=== PATIENT | female | born 1950 | race Caucasian/White ===

== ENCOUNTER 2016-08-27 12:06 | Emergency (ER) | payer OTHER ==
[2016-08-27 12:13] VITALS: BP 185/83; PULSE 54; TEMP 97.8; BMI 28.5
[2016-08-27] MEDS ORDERED: OXYCODONE/APAP 5/325MG COMBO TABLET PO ONE (12:55)
--- NOTE | 2016-08-27 12:57 | PDOC ---
History of Present Illness - General Chief Complaint: Injury Stated Complaint: RT WRIST PAIN Time Seen by Provider: 08/27/16 12:47 History Source: Patient Exam Limitations: No Limitations - History of Present Illness Initial Comments: 08/27/16 13:07 My Chief Complaint: Tripped and fell hitting right, pain rt wrist History of present illness: Patient is a 65-year-old female with a history of asthma, COPD, hypertension, hyperlipidemia and hypothyroidism here today after she tripped on her shoes and fell hitting her right forearm. Patient has a gross deformity of right medial wrist. Patient reports the pain in her right cranial wrist is currently a 10 out of 10. Patient denies any pain of her elbow or forearm or hand. Patient denies any numbness of her right arm or hand. Patient is able to move her fingers and elbow but is unable to move her right wrist. Occurred: reports: just prior to arrival Severity: reports: severe (rt. wrist ) Method of Injury: Yes: fall Modifying Factors: improves with: None Loss of Consciousness: no loss of consciousness Associated Symptoms (Fall): other (rt. medial lety deformity noted ) Past History - Past Medical History Allergies/Adverse Reactions: Allergies Allergy/AdvReac Type Severity Reaction Status Date / Time No Known Allergies Allergy Verified 08/27/16 12:13 Home Medications: Ambulatory Orders Benazepril/Hydrochlorothiazide [Benazepril-Hctz 20-12.5 mg Tab] 1 tab PO DAILY 06/03/12 Escitalopram Oxalate [Lexapro -] 20 mg PO HS 06/03/12 Levothyroxine [Synthroid -] 100 mcg PO DAILY 06/03/12 Rosuvastatin Calcium [Crestor] 5 mg PO HS 06/03/12 Anemia: No Asthma: Yes Cancer: No COPD: Yes HTN: Yes Hypercholesterolemia: Yes Thyroid Disease: Yes - Surgical History Abdominal Surgery: No Appendectomy: Yes Cardiac Surgery: No Gastric Stapling: No (GASTRIC SLEEVE) - Immunization History Td Vaccination: Yes - Psycho/Social/Smoking Cessation Hx Anxiety: No Suicidal Ideation: No Smoking Status: Yes Smoking History: Former smoker Years of Tobacco Use: 25 Have you smoked in the past 12 months: No Number of Cigarettes Smoked Daily: 0 If you are a former smoker, when did you quit?: 24 YRS Cigars Per Day: 0 Information on smoking cessation initiated: No Hx Alcohol Use: Yes (SOCIAL) Drug/Substance Use Hx: No Substance Use Type: None Hx Substance Use Treatment: No Review of Systems - Review of Systems Able to Perform ROS?: Yes Constitutional: No: Symptoms Reported HEENTM: No: Symptoms Reported Respiratory: No: Symptoms reported Cardiac (ROS): No: Symptoms Reported ABD/GI: No: Symptoms Reported : No: Symptoms Reported Musculoskeletal: Yes: Joint Pain (rt. wrist ), Joint Swelling (rt. medial wrist ) Integumentary: No: Symptoms Reported Neurological: No: Symptoms reported *Physical Exam - Vital Signs Last Vital Signs Temp Pulse Resp BP Pulse Ox 97.8 F 54 L 20 185/83 95 08/27/16 12:10 08/27/16 12:10 08/27/16 12:10 08/27/16 12:10 08/27/16 12:10 - Physical Exam General Appearance: Yes: Appropriately Dressed Comments:: 08/27/16 13:31 radial pulse rt. 4 + Extremity: positive: Normal Capillary Refill, Tender (rt. wrist ), Swelling ( rt.medial wrist ), Other (no tenderness rt. elbow, humerous, forearm). negative : Normal Range of Motion (decreased ROM rt. wrist, FROM Rt. elbow, rt. shoulder ) Integumentary: positive: Normal Color Neurologic: positive: Fully Oriented, Normal Response, Respond to painful stimul , Responsive. negative: Numbness, Sensory Deficit (rt. forearm, hand, wrist) Medical Decision Making - Medical Decision Making 08/27/16 13:09 Patient is a 65-year-old female with a history of asthma, COPD, hypertension, hyperlipidemia and hypothyroidism here today after she tripped on her shoes and fell hitting her right forearm. Patient has a gross deformity of right medial wrist. Patient reports the pain in her right cranial wrist is currently a 10 out of 10. Patient denies any pain of her elbow or forearm or hand. Patient denies any numbness of her right arm or hand. Patient is able to move her fingers and elbow but is unable to move her right wrist. Fall R/O rt. wrist PLAN: percocet 5mg/325mg po now xray rt. forearm distal radial comminuted slightly displaced fracture, nondisplaced fracture in the distal ulnar per Dr. Zapata xray rt. wrist nondisplaced fracture through the distal ulnar. Comminuted fracture of the distal radius with dorsal displacement of the distal fracture fragment. per per Dr. Armas 08/27/16 13:38 consult with SANDY Shannon from Dr. Dumont's office he viewed xrays done here, they would like her to go immediately to the office for possible reduction of fracture, he recommended putting her in just a sling if going to their office or if choosing to go to her own orthopedist Dr. Garcia put on a sugartong orthoglass splint. pt given this option or option to go to her own office, she choose to go directed to Dr. Dumont's office sling applied 08/27/16 13:44 08/27/16 14:52 08/27/16 14:53 *DC/Admit/Observation/Transfer Diagnosis at time of Disposition: Fracture of right wrist Qualifiers: Encounter type: initial encounter Fracture type: closed Qualified Code(s): S62.101A - Fracture of unspecified carpal bone, right wrist, initial encounter for closed fracture - Discharge Dispostion Disposition: HOME Condition at time of disposition: Stable - Referrals Referrals: Mata Navarro MD [Primary Care Provider] - Armando Dumont MD [Staff Physician] - - Patient Instructions Additional Instructions: Go immediately to Dr. Dumont's office they are expecting you for further evaluation and treatment Patient and voiced understanding of discharge instructions and all questions are answered
[2016-08-27] MEDS ORDERED: OXYCODONE/APAP 5/325MG COMBO TABLET ONE (12:58)
== END 2016-08-27 13:51 | disposition home or self-care (01) ==
LOC: JERFT 12:06
DX: S62.101A Fracture of unspecified carpal bone, right wrist, initial encounter for closed fracture (principal); W18.09XA Striking against other object with subsequent fall, initial encounter; Y93.89 Activity, other specified; Y92.9 Unspecified place or not applicable; J44.9 Chronic obstructive pulmonary disease, unspecified; J45.909 Unspecified asthma, uncomplicated; I10 Essential (primary) hypertension; E80.0 Hereditary erythropoietic porphyria; E03.9 Hypothyroidism, unspecified; Z98.84 Bariatric surgery status; Z87.891 Personal history of nicotine dependence
CPT/HCPCS: 73090-TC-RT; 73110-TC-RT; 73130-TC-RT; 99281-25

== ENCOUNTER 2016-08-28 05:14 | Day surgery (SDC) | payer OTHER ==
[2016-08-27 16:24] VITALS: BMI 28.5
--- NOTE | 2016-08-28 12:29 | HP ---
Satellite H - Chief Complaint Chief Complaint: right wrist fx - Past Medical History Allergies/Adverse Reactions: Allergies Allergy/AdvReac Type Severity Reaction Status Date / Time No Known Allergies Allergy Verified 08/27/16 16:14 Cardiovascular: Yes: HTN, Hyperlipdemia Endocrine: Yes: Hypothyroidism - Current Medications Current Medications: Home Medications Medication Instructions Recorded Levothyroxine [Synthroid -] 100 mcg PO DAILY 06/03/12 Rosuvastatin Calcium [Crestor] 5 mg PO HS 06/03/12 Lisinopril 08/27/16 Satellite Physical Exam - Physical Examination General Appearance: Well Nourished, Well Developed, Alert & Oriented x3 ENT: Clear Lung: Normal air movement Heart: Regular rate & rhythm Extremities: Other (right wrist- + swelling, + ttp, decr rom, nvi xrays show displaced intraarticular distal radius fx) Neurological: Intact, Alert, Oriented Satellite Impression/Plan - Impression/Plan Impression: right distal radius fx Operative Procedure: right distal radius orif Date to be Performed: 08/28/16
[2016-08-28] MEDS ORDERED: ROPIVACAINE HCL 0.5% 30ML VIAL ONE (14:16)
[2016-08-28] MEDS ORDERED: MIDAZOLAM HCL 2 MG/2 ML SINGLE DOSE VIAL ONE ×2 (14:18)
[2016-08-28] MEDS ORDERED: LIDOCAINE HCL/PF 2% SDV 5ML VIAL ONE (15:19)
[2016-08-28] MEDS ORDERED: PROPOFOL 20 ML ONE (15:20)
[2016-08-28] MEDS ORDERED: ceFAZolin SODIUM 1 GM VIAL ONE (15:31)
[2016-08-28] MEDS ORDERED: DEXAMETHASONE SOD PHOSPHATE 4 MG/1 ML VIAL ONE (15:31)
[2016-08-28] MEDS ORDERED: ceFAZolin SODIUM 1 GM VIAL IVPB ONE (15:32)
[2016-08-28] MEDS ORDERED: ONDANSETRON 4 MG/2 ML VIAL IVPUSH PRN (16:19)
[2016-08-28] MEDS ORDERED: LACTATED RINGERS SOLUTION 1,000 ML IV SCH (16:30)
--- NOTE | 2016-08-28 16:48 | OP ---
Operative Note - Note: Operative Date: 08/28/16 Pre-Operative Diagnosis: right distal radius fracture Operation: right distal radius ORIF Implants: [employer] DVR plate, 3 x 3.5mm screws all 12mm, 5 x distal partially threaded locking screws Surgeon: Norman Palomino Anesthesiologist/MOBILE MECHANIC: Dolores Mcneal Anesthesia: General, Local Estimated Blood Loss (mls): 0 Drains, Volume Out (mls): 0 Blood Volume Replaced (mls): 0 Fluid Volume Replaced (mls): 500 Operative Report Dictated: Yes
[2016-08-28 18:37] VITALS: TEMP 97.8
[2016-08-28 18:47] VITALS: BP 144/62; PULSE 78
--- NOTE | 2016-08-31 20:12 | SPEC ---
DATE OF OPERATION: 08/28/2016 PREOPERATIVE DIAGNOSIS: Right distal radius fracture, comminuted, intraarticular, and displaced. POSTOPERATIVE DIAGNOSIS: Right distal radius fracture, comminuted, intraarticular, and displaced. PROCEDURE: Right distal radius open reduction and internal fixation and brachioradialis tenotomy. SURGEON: Norman Salinas MD ASSISTANTS: None. DIRECTOR OF MARKETING COMMUNICATIONS: Dolores Mcneal CRNA ANESTHESIA: LMA and right interscalene block. DRAINS: None. COMPLICATIONS: None. SPECIMEN: None. BLOOD LOSS: None. BLOOD GIVEN: None. FLUID REPLACEMENT: Was 500 mL. This patient is a 65-year-old female with a preoperative diagnosis of a displaced intraarticular, comminuted right distal radius fracture. After understanding the potential risks, complications, alternatives, and benefits of surgery versus nonsurgical treatment, the patient elected to undergo this procedure. She understands she has a risk of posttraumatic arthritis, temporary or permanent paresthesias, need for physical therapy, infection, need for additional surgery including removal of the plate, neurovascular compromise, stiffness. These and other potential risks and complications were discussed, and the patient has elected to undergo this procedure. The patient was brought to the operating room. Peripheral IV placed. IV sedation given and 1 g of IV Ancef was given. Right interscalene block was performed. LMA anesthesia was induced. The entire case was done under 3.8 loupe magnification. Typical FCR approach was marked out with a marking pen and incision made with No. 15 scalpel blade. Subcutaneous hemostasis was achieved with a bipolar cautery. The radial artery was retracted gently in a radial direction and ulnar to this, using a fresh No. 15 scalpel blade, the muscular fascia was incised. Blunt dissection was done with my index finger down to the volar aspect of the distal radius. Weitlaner retractors were placed deep into the wound for visualization. A periosteal elevator was used to do subperiosteal dissection exposing the fracture site. There was a main transverse component to the distal radius fracture but in addition there were several pieces, some extending towards the radial carpal joint and some towards the distal radial ulnar joint. The fracture site was copiously irrigated and washed out. All debris including hematoma and muscle were removed. A provisional reduction was performed and seemed to come together quite nicely. There was a small metaphyseal defect. X-rays were taken in A-P and lateral planes documenting excellent position of the fracture fragments, restoring radial height inclination and volar tilt. Next a standard [employer] left volar low profile DVR plate was placed on the volar aspect of the distal radius. Two K-wires were placed and x-rays were taken documenting excellent position, length and subchondral position. Next the central 3.5 mm screw was placed in a standard fashion, this was 14 mm in length, and the second-most ulnar proximal row screw was placed. This was a 24 mm partially threaded locking screw. X-rays again were taken documenting excellent position and support of the subchondral bone. The rest of the screws were then put in, first 3 additional purple proximal screws of 12 mm in length for 6 cortices proximally and then the silver drill bit was used to put in the remaining 5 screws of both the proximal and distal row from mm of length, all partially-threaded blue distal screws. All of the guides were removed and passed off the field. Final x-rays were taken in A-P and lateral planes. I was quite happy with the fracture fragments, position of the hardware, and the position of the screws in the subchondral position. The tourniquet was taken down after a total tourniquet time of 45 minutes. There were no complications during the case. The patient tolerated the procedure well and was brought to the ambulatory recovery room in stable condition. DETAILS: We used the [employer] standard volar DVR plate. I used 3 purple 3.5-mm screws, all 12 mm in length. We used a total of 5 of the partially-threaded blue distal screws. I did a brachioradialis tenotomy to expedite the reduction. NORMAN SALINAS M.D. [id number]
== END 2016-08-28 18:53 | disposition home or self-care (01) ==
LOC: JASU-SURG 05:14
PROVIDERS: ATTEND Orthopaedic Surgery
PROC: 0PSH04Z Reposition Right Radius with Internal Fixation Device, Open Approach (ICD-10-PCS; principal; 2016-08-28 17:30)
DX: S52.531A Colles' fracture of right radius, initial encounter for closed fracture (principal); X58.XXXA Exposure to other specified factors, initial encounter; Y93.9 Activity, unspecified; Y92.9 Unspecified place or not applicable; Y99.9 Unspecified external cause status
CPT/HCPCS: 76000-TC; 94760

== ENCOUNTER 2017-07-08 07:01 | Day surgery (SDC) | payer OTHER ==
[2017-07-07 13:25] VITALS: BMI 29.1
[2017-07-08 08:44] VITALS: TEMP 97.5
[2017-07-08 09:56] VITALS: BP 117/45; PULSE 50
--- NOTE | 2017-07-09 09:57 | PATH ---
Surgical Pathology Report Patient Name: HERBERT SHARIF [facility]. Rec. #: [id number] /Age/Gender: 1950 (Age: 66) / F Account: [id number] Location: ASU-ENDOSCOPY Taken: 07/08/2017 Received: 07/08/2017 Reported: 07/09/2017 Physicians: Jessica De Leon M.D. Specimen(s) Received RECTAL POLYP Clinical History Colon cancer screening Postoperative diagnosis: Rectal polyp, diverticulosis Final Diagnosis RECTUM, POLYP, POLYPECTOMY: HYPERPLASTIC POLYP. Electronically Signed Rosina Bean M.D. Gross Description Received in formalin, labeled "biopsy polyp rectum" are 5 chang, irregular portions of soft tissue ranging from 0.2-0.5 cm. in greatest dimension. The specimens are submitted in toto in one cassette. /07/08/2017 saudi07/08/2017
== END 2017-07-08 09:56 | disposition home or self-care (01) ==
LOC: JASU-ENDO 07:01
PROVIDERS: ATTEND Internal Medicine Gastroenterology
PROC: 0DBP8ZX Excision of Rectum, Via Natural or Artificial Opening Endoscopic, Diagnostic (ICD-10-PCS; principal; 2017-07-08 08:00)
DX: Z12.11 Encounter for screening for malignant neoplasm of colon (principal); K62.1 Rectal polyp; I10 Essential (primary) hypertension; E03.9 Hypothyroidism, unspecified; J44.9 Chronic obstructive pulmonary disease, unspecified; Z98.84 Bariatric surgery status; K57.30 Diverticulosis of large intestine without perforation or abscess without bleeding
CPT/HCPCS: 88305-TC

== ENCOUNTER 2017-08-06 10:40 | Emergency (ER) | payer OTHER ==
--- NOTE | 2017-08-06 10:59 | PDOC ---
History of Present Illness - General Chief Complaint: Injury Stated Complaint: FALL (RAPID RESPONSE) Time Seen by Provider: 08/06/17 10:59 Past History - Past Medical History Allergies/Adverse Reactions: Allergies Allergy/AdvReac Type Severity Reaction Status Date / Time No Known Allergies Allergy Verified 08/27/16 16:14 Home Medications: Ambulatory Orders Levothyroxine [Synthroid -] 100 mcg PO DAILY 06/03/12 Rosuvastatin Calcium [Crestor] 5 mg PO ASDIR 06/03/12 Amlodipine Besylate [Norvasc -] 10 mg PO DAILY 07/07/17 Aspirin [Aspirin EC] 81 mg PO DAILY 07/07/17 Calcium Carb, Citrate/Vit D3 [Calcium + D3 ER Tablet] 600 mg PO DAILY 07/07/17 Cyanocobalamin (Vitamin B-12) [Vitamin B12] 2,500 mcg PO DAILY 07/07/17 Metoprolol Succinate [Toprol Xl] 50 mg PO DAILY 07/07/17 Multivitamin [Daily Multiple Vitamin] 1 each PO DAILY 07/07/17 Valsartan [Diovan] 160 mg PO DAILY 07/07/17 Anemia: No Asthma: Yes Cancer: No Cardiac Disorders: No CVA: No COPD: Yes (inhalers when needed) CHF: No Dementia: No Diabetes: No GI Disorders: No Disorders: No HTN: Yes Hypercholesterolemia: Yes Liver Disease: No Seizures: No Thyroid Disease: Yes (hypo) - Surgical History Abdominal Surgery: No Appendectomy: Yes (2012) Cardiac Surgery: No Gastric Stapling: No (GASTRIC SLEEVE) Orthopedic Surgery: Yes (WRIST SX) - Immunization History Td Vaccination: Yes - Suicide/Smoking/Psychosocial Hx Smoking Status: Yes Smoking History: Former smoker Years of Tobacco Use: 25 Have you smoked in the past 12 months: No Number of Cigarettes Smoked Daily: 0 If you are a former smoker, when did you quit?: 25 YRS Cigars Per Day: 0 Information on smoking cessation initiated: No Hx Alcohol Use: No Drug/Substance Use Hx: No Substance Use Type: None Hx Substance Use Treatment: No *Physical Exam - Vital Signs Last Vital Signs Temp Pulse Resp BP Pulse Ox 98 F 78 20 157/78 97 08/06/17 10:47 08/06/17 10:47 08/06/17 10:47 08/06/17 10:47 08/06/17 10:47 *DC/Admit/Observation/Transfer - Referrals Referrals: Mata Navarro MD [Primary Care Provider] - - Patient Instructions - Post Discharge Activity
[2017-08-06 11:01] VITALS: TEMP 98; BMI 29.9
--- NOTE | 2017-08-06 11:07 | PDOC ---
History of Present Illness - General Chief Complaint: Injury Stated Complaint: FALL (RAPID RESPONSE) Time Seen by Provider: 08/06/17 10:59 - History of Present Illness Initial Comments: 08/06/17 11:15 66 year old female with a hx of hypertension and COPD presents to the ED s/p fall in the hospital. She states that she tripped and fell while walking to get her routine labs drawn for her PCP. She reports falling forward and breaking her fall with her right wrist. She denies LOC, lightheadedness, or hx of falls. She states that she feels mild pain and soreness in her right hand as well as pain on her right side. Denies chest pain, fevers, chills, nausea, vomiting, diarrhea. Allergies: none Surgeries: R hand surgery 1 year ago Smoking: former Alcohol: none Drugs: none PCP: Dr. Navarro Past History - Past Medical History Allergies/Adverse Reactions: Allergies Allergy/AdvReac Type Severity Reaction Status Date / Time No Known Allergies Allergy Verified 08/27/16 16:14 Home Medications: Ambulatory Orders Levothyroxine [Synthroid -] 100 mcg PO DAILY 06/03/12 Rosuvastatin Calcium [Crestor] 5 mg PO ASDIR 06/03/12 Amlodipine Besylate [Norvasc -] 10 mg PO DAILY 07/07/17 Aspirin [Aspirin EC] 81 mg PO DAILY 07/07/17 Calcium Carb, Citrate/Vit D3 [Calcium + D3 ER Tablet] 600 mg PO DAILY 07/07/17 Cyanocobalamin (Vitamin B-12) [Vitamin B12] 2,500 mcg PO DAILY 07/07/17 Metoprolol Succinate [Toprol Xl] 50 mg PO DAILY 07/07/17 Multivitamin [Daily Multiple Vitamin] 1 each PO DAILY 07/07/17 Valsartan [Diovan] 160 mg PO DAILY 07/07/17 Anemia: No Asthma: Yes Cancer: No Cardiac Disorders: No CVA: No COPD: Yes (inhalers when needed) CHF: No Dementia: No Diabetes: No GI Disorders: No Disorders: No HTN: Yes Hypercholesterolemia: Yes Liver Disease: No Seizures: No Thyroid Disease: Yes (hypo) - Surgical History Abdominal Surgery: No Appendectomy: Yes (2012) Cardiac Surgery: No Gastric Stapling: No (GASTRIC SLEEVE) Orthopedic Surgery: Yes (WRIST SX) - Immunization History Td Vaccination: Yes - Suicide/Smoking/Psychosocial Hx Smoking Status: Yes Smoking History: Former smoker Years of Tobacco Use: 25 Have you smoked in the past 12 months: No Number of Cigarettes Smoked Daily: 0 If you are a former smoker, when did you quit?: 25 YRS Cigars Per Day: 0 Information on smoking cessation initiated: No Hx Alcohol Use: No Drug/Substance Use Hx: No Substance Use Type: None Hx Substance Use Treatment: No *Physical Exam - Vital Signs Last Vital Signs Temp Pulse Resp BP Pulse Ox 98 F 78 20 157/78 97 08/06/17 10:47 08/06/17 10:47 08/06/17 10:47 08/06/17 10:47 08/06/17 10:47 - Physical Exam Comments: 08/06/17 11:20 GENERAL: A&Ox3, no acute distress EYES: PERRLA, EOMI ENT: Moist mucus membranes NECK: No JVD LUNGS: CTA, no wheezes HEART: RRR, no murmurs ABDOMEN: Soft, mildly tender to palpation of R side MUSCULOSKELETAL: No CVA Tenderness EXTREMITIES: 2+ pulses, no edema. mildly weak medical receptionist strength of R hand NEUROLOGICAL: Cranial nerves II-XII intact. ED Treatment Course - LABORATORY CBC & Chemistry Diagram: 08/06/17 13:00 08/06/17 13:00 Medical Decision Making - Medical Decision Making 08/06/17 11:31 66 year old female s/p fall with injury to R side and R hand -Xray R hand, R rib series, CXR -will re-evaluate 08/06/17 13:16 -patient still has R sided abdominal pain -will get a set of labs and CT abdomen pelvis with contrast 08/06/17 16:02 -No acute R wrist pathology -No rib pathology -awaiting read of CT abd/pelvis 08/06/17 16:43 -abd/pelvis negative for acute pathology *DC/Admit/Observation/Transfer Diagnosis at time of Disposition: Fall - Discharge Dispostion Disposition: HOME Condition at time of disposition: Stable Decision to Admit order: No - Referrals Referrals: Mata Navarro MD [Primary Care Provider] - - Patient Instructions - Post Discharge Activity
[2017-08-06] MEDS ORDERED: ACETAMINOPHEN 325 MG TABLET (FP) PO ONE ×2 (12:19→12:20)
[2017-08-06] MEDS ORDERED: ACETAMINOPHEN 325 MG TABLET (FP) ONE (12:24)
[2017-08-06 13:12] LABS: BASO % 0.6 % (0-2.0); EOS % 2.1 % (0-4.5); HEMATOCRIT 37.3 % (32.4-45.2); HEMOGLOBIN 12.3 GM/dL (10.7-15.3); LYMPH % 24.2 % (8-40); MCH 31.7 pg (25.7-33.7); MEAN CELL VOLUME 96.1 fl (80-96); MEAN PLT VOLUME 10.3 fl (7.5-11.1); MONO % 8.7 % (3.8-10.2); NEUT % 64.4 % (42.8-82.8); PLATELET COUNT 232 K/MM3 (134-434); RBC 3.88 M/mm3 (3.60-5.2); RDW 13.2 % (11.6-15.6)
[2017-08-06 13:27] LABS: PROTHROMBIN TIME (PATIENT) 11.3 SEC (9.7-13.0)
[2017-08-06 13:32] LABS: ALBUMIN 3.3 g/dl (3.4-5.0); ANION GAP 6 (8-16); BILIRUBIN,TOTAL 0.6 mg/dL (0.2-1.0); BLOOD UREA NITROGEN 14 mg/dL (7-18); CALCIUM 8.7 mg/dL (8.5-10.1); CHLORIDE 104 mmol/L (98-107); CO2 29 mmol/L (21-32); CREATININE 0.7 mg/dL (0.55-1.02); GLUCOSE,RANDOM 81 mg/dL (74-106); POTASSIUM 4.2 mmol/L (3.5-5.1); SGOT/AST 11 U/L (15-37); SGPT/ALT 21 U/L (12-78); SODIUM 139 mmol/L (136-145); TOT PROT 7.8 g/dl (6.4-8.2)
[2017-08-06 13:33] LABS: ALK PHOS 103 U/L (45-117)
[2017-08-06 17:01] VITALS: BP 159/78; PULSE 52
== END 2017-08-06 17:00 | disposition home or self-care (01) ==
LOC: JER 10:40
DX: S29.8XXA Other specified injuries of thorax, initial encounter (principal); S69.81XA Other specified injuries of right wrist, hand and finger(s), initial encounter; W01.0XXA Fall on same level from slipping, tripping and stumbling without subsequent striking against object, initial encounter; Y93.89 Activity, other specified; Y92.232 Corridor of hospital as the place of occurrence of the external cause; Y99.8 Other external cause status; I10 Essential (primary) hypertension; J44.9 Chronic obstructive pulmonary disease, unspecified; J45.909 Unspecified asthma, uncomplicated; E78.00 Pure hypercholesterolemia, unspecified; E03.9 Hypothyroidism, unspecified; Z79.82 Long term (current) use of aspirin; Z87.891 Personal history of nicotine dependence
CPT/HCPCS: 36415; 71046-TC-FY; 71111-TC-FY; 73110-TC-RT-FY; 73130-TC-RT-FY; 74177-TC; 80053; 85025; 85610; 99282-25

== ENCOUNTER 2022-06-07 17:06 | Inpatient (IN) | payer OTHER ==
[2022-06-07] MEDS ORDERED: CEFTRIAXONE 1,000 MG in DEXTROSE 5%-WATER - 50 ML IVPB ONE (18:19)
[2022-06-07] MEDS ORDERED: AZITHROMYCIN IVPB 500 MG in DEXTROSE 5%-WATER - 250 ML IVPB ONE (18:19)
[2022-06-07] MEDS ORDERED: DOXYCYCLINE MONOHYDRATE 25 MG/5 ML SUSPENSION PO ONE (18:20)
[2022-06-07] MEDS ORDERED: CEFTRIAXONE 1 GM/50 ML BAG ONE (18:25)
[2022-06-07] MEDS ORDERED: ACETAMINOPHEN 1000 MG/100 ML BAG IVPB ONE (18:25)
[2022-06-07] MEDS ORDERED: LIDOCAINE 5% TOPICAL PATCH TP ONE (18:25)
[2022-06-07] MEDS: ALBUTEROL SO4 2.5/IPRATROPIUM 0.5 INH SOL 3 ML VIAL.NEB. NEB SCH ×3 (18:30→19:00)
[2022-06-07] MEDS ORDERED: ACETAMINOPHEN INJECTION 100 ML IVPB ONE (18:48)
[2022-06-07] MEDS ORDERED: LIDOCAINE 5% TOPICAL PATCH ONE (18:48)
[2022-06-07] MEDS ORDERED: ALBUTEROL SO4 2.5/IPRATROPIUM 0.5 INH SOL 3 ML VIAL.NEB. NEB ONE (18:48)
[2022-06-07 18:54] LABS: VENOUS BASE EXCESS -3.8 mmol/L (-2-2); VENOUS O2 SATURATION 73.1 % (70-80); VENOUS PCO2 49.1 mmHg (38-52); VENOUS PH 7.29 (7.310-7.410)
[2022-06-07 19:05] LABS: BASO % 0.1 % (0-2.0); EOS % 0.1 % (0-4.5); HEMATOCRIT 36.3 % (32.4-45.2); HEMOGLOBIN 12.1 GM/dL (10.7-15.3); MCH 31.9 pg (25.7-33.7); MCHC 33.3 g/dl (32.0-36.0); MEAN CELL VOLUME 95.7 fl (80-96); MEAN PLT VOLUME 9.9 fl (7.5-11.1); NEUT % 81.8 % (42.8-82.8); PLATELET COUNT 277 10^3/uL (134-434); RDW 12.9 % (11.6-15.6); WHITE BLOOD COUNT 14.5 K/mm3 (4.0-10.0)
[2022-06-07 19:26] LABS: ALBUMIN 3.2 g/dl (3.4-5.0); BLOOD UREA NITROGEN 27.1 mg/dL (7-18); CALCIUM 9.1 mg/dL (8.5-10.1)
[2022-06-07 19:31] LABS: BILIRUBIN,TOTAL 0.3 mg/dL (0.2-1); TOT PROT 7.4 g/dl (6.4-8.2)
[2022-06-07] MEDS ORDERED: DOXYCYCLINE HYCLATE 100 MG CAPSULE PO ONE ×2 (20:04→21:17)
[2022-06-07] MEDS ORDERED: DOCUSATE SODIUM 100 MG CAPSULE (FP) PO PRN (21:36)
[2022-06-07] MEDS ORDERED: CODEINE SO4 30 MG TABLET PO ONE (21:45)
[2022-06-07] MEDS ORDERED: traZODone HCL 50 MG TABLET (FP) PO SCH (22:00)
[2022-06-07 23:58] VITALS: BMI 34.2
[2022-06-08] MEDS ORDERED: LIDOCAINE HCL 5% TOP OINTMENT 50 GM TUBE TP ONE (00:16)
[2022-06-08] MEDS ORDERED: LIDOCAINE 5% TOPICAL PATCH TP ONE (00:17)
[2022-06-08] MEDS ORDERED: LIDOCAINE PATCH REMOVAL MC ONE ×2 (06:00→13:00)
[2022-06-08] MEDS: LEVOTHYROXINE NA 100 MCG TABLET (FP) PO SCH (06:30)
[2022-06-08] MEDS: ALBUTEROL SO4 0.083% IH SOL 2.5 MG/3 ML VIAL.NEB. NEB SCH ×4 (07:25→20:03)
[2022-06-08 09:12] LABS: HEMATOCRIT 33.8 % (32.4-45.2); HEMOGLOBIN 11.5 GM/dL (10.7-15.3); MCH 32.6 pg (25.7-33.7); MCHC 33.9 g/dl (32.0-36.0); MEAN CELL VOLUME 96.2 fl (80-96); MEAN PLT VOLUME 10.4 fl (7.5-11.1); PLATELET COUNT 248 10^3/uL (134-434); RBC 3.52 M/mm3 (3.60-5.2); RDW 12.8 % (11.6-15.6); WHITE BLOOD COUNT 10.7 K/mm3 (4.0-10.0)
[2022-06-08] MEDS: CEFTRIAXONE 2 GM in DEXTROSE 5%-WATER 100 ML IVPB SCH (09:20)
[2022-06-08] MEDS: amLODIPine BESYLATE 10 MG TABLET (FP) PO SCH (09:22)
[2022-06-08 09:29] LABS: BLOOD UREA NITROGEN 19.3 mg/dL (7-18); CALCIUM 8.7 mg/dL (8.5-10.1)
[2022-06-08 09:33] LABS: CREATININE 0.8 mg/dL (0.55-1.3)
[2022-06-08] MEDS: ENOXAPARIN NA (PORCINE) 40 MG/0.4 ML DISP.SYRIN SQ SCH (09:47)
[2022-06-08] MEDS ORDERED: VALSARTAN 160 MG TABLET PO SCH (10:00)
[2022-06-08] MEDS ORDERED: ENOXAPARIN NA (PORCINE) 40 MG/0.4 ML DISP.SYRIN SQ SCH (10:00)
[2022-06-08] MEDS: AZITHROMYCIN 500 MG TABLET PO SCH (10:46)
[2022-06-08] MEDS: CODEINE SO4 30 MG TABLET PO PRN ×2 (12:15→21:41)
[2022-06-08] MEDS: traZODone HCL 50 MG TABLET (FP) PO SCH (21:34)
[2022-06-09] MEDS: LEVOTHYROXINE NA 100 MCG TABLET (FP) PO SCH (06:17)
[2022-06-09] MEDS: ALBUTEROL SO4 0.083% IH SOL 2.5 MG/3 ML VIAL.NEB. NEB SCH ×4 (07:10→20:15)
[2022-06-09] MEDS: amLODIPine BESYLATE 10 MG TABLET (FP) PO SCH (10:54)
[2022-06-09] MEDS: CEFTRIAXONE 2 GM in DEXTROSE 5%-WATER 100 ML IVPB SCH (10:54)
[2022-06-09] MEDS: metoPROLOL SUCCINATE 25 MG TAB.SR.24H (FP) PO SCH (10:54)
[2022-06-09] MEDS: VALSARTAN 160 MG TABLET PO SCH (10:55)
[2022-06-09] MEDS: AZITHROMYCIN 500 MG TABLET PO SCH (10:58)
[2022-06-09] MEDS: ENOXAPARIN NA (PORCINE) 40 MG/0.4 ML DISP.SYRIN SQ SCH (10:58)
[2022-06-09] MEDS: traZODone HCL 50 MG TABLET (FP) PO SCH (21:12)
[2022-06-09] MEDS: CODEINE SO4 30 MG TABLET PO PRN (21:15)
[2022-06-10] MEDS: LEVOTHYROXINE NA 100 MCG TABLET (FP) PO SCH (06:11)
[2022-06-10] MEDS: ALBUTEROL SO4 0.083% IH SOL 2.5 MG/3 ML VIAL.NEB. NEB SCH ×4 (07:25→19:44)
[2022-06-10] MEDS: AZITHROMYCIN 500 MG TABLET PO SCH (10:27)
[2022-06-10] MEDS: ENOXAPARIN NA (PORCINE) 40 MG/0.4 ML DISP.SYRIN SQ SCH (10:28)
[2022-06-10] MEDS: CEFTRIAXONE 2 GM in DEXTROSE 5%-WATER 100 ML IVPB SCH (10:28)
[2022-06-10] MEDS: VALSARTAN 160 MG TABLET PO SCH (10:41)
[2022-06-10] MEDS: amLODIPine BESYLATE 10 MG TABLET (FP) PO SCH (10:44)
[2022-06-10] MEDS: metoPROLOL SUCCINATE 25 MG TAB.SR.24H (FP) PO SCH (10:44)
[2022-06-10 11:27] LABS: HEMATOCRIT 34.2 % (32.4-45.2); HEMOGLOBIN 11.7 GM/dL (10.7-15.3); MCH 32.6 pg (25.7-33.7); MCHC 34.1 g/dl (32.0-36.0); MEAN CELL VOLUME 95.7 fl (80-96); MEAN PLT VOLUME 9.2 fl (7.5-11.1); PLATELET COUNT 284 10^3/uL (134-434); RBC 3.58 M/mm3 (3.60-5.2); RDW 13.1 % (11.6-15.6)
[2022-06-10 12:12] LABS: BLOOD UREA NITROGEN 8.7 mg/dL (7-18); CALCIUM 8.5 mg/dL (8.5-10.1); MAGNESIUM 2.2 mg/dL (1.8-2.4)
[2022-06-10 12:13] LABS: ALBUMIN 2.6 g/dl (3.4-5.0)
[2022-06-10 12:15] LABS: PHOSPHOROUS 3.4 mg/dL (2.5-4.9)
[2022-06-10 12:16] LABS: CREATININE 0.7 mg/dL (0.55-1.3)
[2022-06-10 12:17] LABS: ANISOCYTOSIS 0; BILIRUBIN,TOTAL 0.5 mg/dL (0.2-1); HELMET CELLS 0; HOWELL-JOLLY BODIES 0; MACROCYTOSIS 0; OVALOCYTE 0; ROULEAU 0; SICKELED CELLS 0; TARGET CELLS 0; TEAR DROP CELLS 0; TOT PROT 6.3 g/dl (6.4-8.2); TOXIC GRANULATION 0
[2022-06-10 14:24] VITALS: RESP 18
[2022-06-10] MEDS: traZODone HCL 50 MG TABLET (FP) PO SCH (21:24)
[2022-06-11] MEDS: LEVOTHYROXINE NA 100 MCG TABLET (FP) PO SCH (06:07)
[2022-06-11] MEDS: ALBUTEROL SO4 0.083% IH SOL 2.5 MG/3 ML VIAL.NEB. NEB SCH ×4 (07:37→20:30)
[2022-06-11] MEDS ORDERED: POLYETHYLENE GLYCOL (HEALTHYLAX) 3350 17 GM PACKET PO ONE (10:00)
[2022-06-11] MEDS: VALSARTAN 160 MG TABLET PO SCH (10:19)
[2022-06-11] MEDS: amLODIPine BESYLATE 10 MG TABLET (FP) PO SCH (10:19)
[2022-06-11] MEDS: ENOXAPARIN NA (PORCINE) 40 MG/0.4 ML DISP.SYRIN SQ SCH (10:19)
[2022-06-11] MEDS: metoPROLOL SUCCINATE 25 MG TAB.SR.24H (FP) PO SCH (10:19)
[2022-06-11] MEDS: CEFTRIAXONE 2 GM in DEXTROSE 5%-WATER 100 ML IVPB SCH (10:20)
[2022-06-11 10:29] LABS: HEMATOCRIT 33.5 % (32.4-45.2); HEMOGLOBIN 11.3 GM/dL (10.7-15.3); MCH 32.2 pg (25.7-33.7); MCHC 33.7 g/dl (32.0-36.0); MEAN CELL VOLUME 95.7 fl (80-96); MEAN PLT VOLUME 9.8 fl (7.5-11.1); PLATELET COUNT 269 10^3/uL (134-434); RDW 12.9 % (11.6-15.6); WHITE BLOOD COUNT 8.8 K/mm3 (4.0-10.0)
[2022-06-11] MEDS: traZODone HCL 50 MG TABLET (FP) PO SCH (21:52)
[2022-06-12] MEDS: LEVOTHYROXINE NA 100 MCG TABLET (FP) PO SCH (06:41)
[2022-06-12] MEDS: ALBUTEROL SO4 0.083% IH SOL 2.5 MG/3 ML VIAL.NEB. NEB SCH ×4 (07:40→20:40)
[2022-06-12] MEDS: CEFTRIAXONE 2 GM in DEXTROSE 5%-WATER 100 ML IVPB SCH (10:01)
[2022-06-12] MEDS: amLODIPine BESYLATE 10 MG TABLET (FP) PO SCH (10:01)
[2022-06-12] MEDS: VALSARTAN 160 MG TABLET PO SCH (10:01)
[2022-06-12] MEDS: ENOXAPARIN NA (PORCINE) 40 MG/0.4 ML DISP.SYRIN SQ SCH (10:01)
[2022-06-12] MEDS: metoPROLOL SUCCINATE 25 MG TAB.SR.24H (FP) PO SCH (10:02)
[2022-06-12] MEDS: CODEINE SO4 30 MG TABLET PO PRN (10:11)
[2022-06-12] MEDS: ACETYLCYSTEINE 20% 200MG/ML 4 ML VIAL *FOR ORAL / INH USE ONLY NEB SCH ×2 (11:15→20:40)
[2022-06-12] MEDS ORDERED: ACETYLCYSTEINE 20% 200MG/ML 4 ML VIAL *FOR ORAL / INH USE ONLY NEB SCH (12:00)
[2022-06-12] MEDS: traZODone HCL 50 MG TABLET (FP) PO SCH (21:10)
[2022-06-13] MEDS: LEVOTHYROXINE NA 100 MCG TABLET (FP) PO SCH (05:59)
[2022-06-13] MEDS: ALBUTEROL SO4 0.083% IH SOL 2.5 MG/3 ML VIAL.NEB. NEB SCH ×4 (08:15→20:27)
[2022-06-13] MEDS: ACETYLCYSTEINE 20% 200MG/ML 4 ML VIAL *FOR ORAL / INH USE ONLY NEB SCH ×2 (08:15→20:27)
[2022-06-13] MEDS: ENOXAPARIN NA (PORCINE) 40 MG/0.4 ML DISP.SYRIN SQ SCH (10:07)
[2022-06-13] MEDS: VALSARTAN 160 MG TABLET PO SCH (10:07)
[2022-06-13] MEDS: CODEINE SO4 30 MG TABLET PO PRN (10:07)
[2022-06-13] MEDS: metoPROLOL SUCCINATE 25 MG TAB.SR.24H (FP) PO SCH (10:07)
[2022-06-13] MEDS: CEFTRIAXONE 2 GM in DEXTROSE 5%-WATER 100 ML IVPB SCH (10:07)
[2022-06-13] MEDS: amLODIPine BESYLATE 10 MG TABLET (FP) PO SCH (10:07)
[2022-06-13] MEDS: traZODone HCL 50 MG TABLET (FP) PO SCH (21:55)
[2022-06-14] MEDS: LEVOTHYROXINE NA 100 MCG TABLET (FP) PO SCH (06:28)
[2022-06-14] MEDS: ACETYLCYSTEINE 20% 200MG/ML 4 ML VIAL *FOR ORAL / INH USE ONLY NEB SCH ×2 (08:15→20:07)
[2022-06-14] MEDS: ALBUTEROL SO4 0.083% IH SOL 2.5 MG/3 ML VIAL.NEB. NEB SCH ×4 (08:15→20:07)
[2022-06-14] MEDS: CEFTRIAXONE 2 GM in DEXTROSE 5%-WATER 100 ML IVPB SCH (10:02)
[2022-06-14] MEDS: amLODIPine BESYLATE 10 MG TABLET (FP) PO SCH (10:03)
[2022-06-14] MEDS: metoPROLOL SUCCINATE 25 MG TAB.SR.24H (FP) PO SCH (10:03)
[2022-06-14] MEDS: CODEINE SO4 30 MG TABLET PO PRN (10:03)
[2022-06-14] MEDS: ENOXAPARIN NA (PORCINE) 40 MG/0.4 ML DISP.SYRIN SQ SCH (10:03)
[2022-06-14] MEDS: VALSARTAN 160 MG TABLET PO SCH (10:03)
[2022-06-14] MEDS: traZODone HCL 50 MG TABLET (FP) PO SCH (21:33)
[2022-06-15] MEDS: LEVOTHYROXINE NA 100 MCG TABLET (FP) PO SCH (06:24)
[2022-06-15] MEDS: ALBUTEROL SO4 0.083% IH SOL 2.5 MG/3 ML VIAL.NEB. NEB SCH ×4 (07:55→20:05)
[2022-06-15] MEDS: ACETYLCYSTEINE 20% 200MG/ML 4 ML VIAL *FOR ORAL / INH USE ONLY NEB SCH ×2 (07:55→20:05)
[2022-06-15] MEDS: VALSARTAN 160 MG TABLET PO SCH (09:14)
[2022-06-15] MEDS: metoPROLOL SUCCINATE 25 MG TAB.SR.24H (FP) PO SCH (09:14)
[2022-06-15] MEDS: amLODIPine BESYLATE 10 MG TABLET (FP) PO SCH (09:14)
[2022-06-15 10:04] LABS: BLOOD UREA NITROGEN 10.7 mg/dL (7-18)
[2022-06-15 10:07] LABS: CREATININE 0.7 mg/dL (0.55-1.3)
[2022-06-15 10:14] LABS: HEMATOCRIT 35.5 % (32.4-45.2); HEMOGLOBIN 11.9 GM/dL (10.7-15.3); MCH 32.1 pg (25.7-33.7); MCHC 33.6 g/dl (32.0-36.0); MEAN CELL VOLUME 95.6 fl (80-96); MEAN PLT VOLUME 8.9 fl (7.5-11.1); PLATELET COUNT 292 10^3/uL (134-434); RBC 3.72 M/mm3 (3.60-5.2); RDW 12.9 % (11.6-15.6); WHITE BLOOD COUNT 5.3 K/mm3 (4.0-10.0)
[2022-06-15] MEDS: ENOXAPARIN NA (PORCINE) 40 MG/0.4 ML DISP.SYRIN SQ SCH (12:10)
[2022-06-15] MEDS: traZODone HCL 50 MG TABLET (FP) PO SCH (21:38)
[2022-06-16] MEDS: LEVOTHYROXINE NA 100 MCG TABLET (FP) PO SCH (06:14)
[2022-06-16] MEDS: ALBUTEROL SO4 0.083% IH SOL 2.5 MG/3 ML VIAL.NEB. NEB SCH ×2 (08:00→11:35)
[2022-06-16] MEDS: ACETYLCYSTEINE 20% 200MG/ML 4 ML VIAL *FOR ORAL / INH USE ONLY NEB SCH (08:00)
[2022-06-16] MEDS: metoPROLOL SUCCINATE 25 MG TAB.SR.24H (FP) PO SCH (08:59)
[2022-06-16] MEDS: amLODIPine BESYLATE 10 MG TABLET (FP) PO SCH (08:59)
[2022-06-16] MEDS: ENOXAPARIN NA (PORCINE) 40 MG/0.4 ML DISP.SYRIN SQ SCH (08:59)
[2022-06-16] MEDS: VALSARTAN 160 MG TABLET PO SCH (08:59)
[2022-06-16 09:34] VITALS: BP 128/76; TEMP 98.2
[2022-06-16 10:43] VITALS: PULSE 68
== END 2022-06-16 14:19 | disposition home or self-care (01) | DRG 190 ==
LOC: JER 17:06 → JERBED 18:42 → J6S 23:03
PROVIDERS: ADMIT Internal Medicine; ATTEND Internal Medicine
DX: J44.0 Chronic obstructive pulmonary disease with (acute) lower respiratory infection (principal); J18.9 Pneumonia, unspecified organism; I10 Essential (primary) hypertension; E78.5 Hyperlipidemia, unspecified; E03.9 Hypothyroidism, unspecified; R07.81 Pleurodynia; Z87.891 Personal history of nicotine dependence; D72.829 Elevated white blood cell count, unspecified
CPT/HCPCS: 0241U-QW; 36415; 80048; 80053; 82803; 83605; 83735; 84100; 84443; 85025; 85027; 87040; 87081; 87899; 93005; 93010; 94640; 94761; 99285-25

== ENCOUNTER 2023-07-03 22:46 | Emergency (ER) | payer OTHER ==
[2023-07-03 22:52] VITALS: BP 140/79; PULSE 65; RESP 18; TEMP 97.8; BMI 38.2
[2023-07-04] MEDS: ACETAMINOPHEN 325 MG TABLET (FP) PO ONE (00:30)
[2023-07-04] MEDS ORDERED: ACETAMINOPHEN 325 MG TABLET (FP) ONE (00:31)
[2023-07-04] MEDS ORDERED: CEPHALEXIN MONOHYDRATE 500 MG CAPSULE (UD) PO ONE (03:06)
== END 2023-07-04 03:33 | disposition home or self-care (01) ==
LOC: JER 22:46
DX: S00.83XA Contusion of other part of head, initial encounter (principal); M25.561 Pain in right knee; W10.9XXA Fall (on) (from) unspecified stairs and steps, initial encounter
CPT/HCPCS: 70450-TC; 70486-TC; 72125-TC; 73070-TC-RT-FY; 73200-TC-RT; 73562-TC-RT-FY; 99284-25

== ENCOUNTER 2024-02-06 16:16 | Inpatient (IN) | payer OTHER ==
[2024-02-06 16:50] VITALS: BMI 27.4
[2024-02-06] MEDS ORDERED: AZITHROMYCIN 250 MG TABLET ONE (17:59)
[2024-02-06 18:00] LABS: HEMATOCRIT 39.2 % (32.4-45.2); HEMOGLOBIN 13.3 GM/dL (10.7-15.3); MCH 32.6 pg (25.7-33.7); MCHC 33.9 g/dl (32.0-36.0); MEAN CELL VOLUME 96.1 fl (80-96); MEAN PLT VOLUME 10.4 fl (7.5-11.1); PLATELET COUNT 201 10^3/uL (134-434); RBC 4.08 M/mm3 (3.60-5.2); RDW 13.2 % (11.6-15.6); WHITE BLOOD COUNT 5.8 K/mm3 (4.0-10.0)
[2024-02-06] MEDS ORDERED: AMOX TR/POT CLAV 875MG/125MG TABLETS (FP) ONE (18:00)
[2024-02-06] MEDS: AMOX TR/POT CLAV 875MG/125MG TABLETS (FP) PO ONE (18:01)
[2024-02-06] MEDS: AZITHROMYCIN 250 MG TABLET PO ONE (18:01)
[2024-02-06 18:16] LABS: POTASSIUM 3.8 mmol/L (3.5-5.1)
[2024-02-06 18:18] LABS: ALBUMIN 3.4 g/dl (3.4-5.0); BLOOD UREA NITROGEN 19.8 mg/dL (7-18); CALCIUM 9.2 mg/dL (8.5-10.1)
[2024-02-06] MEDS: ALBUTEROL SO4 2.5/IPRATROPIUM 0.5 INH SOL 3 ML VIAL.NEB. NEB ONE (18:21)
[2024-02-06] MEDS ORDERED: ALBUTEROL SO4 2.5/IPRATROPIUM 0.5 INH SOL 3 ML VIAL.NEB. NEB ONE (18:22)
[2024-02-06 18:24] LABS: BILIRUBIN,TOTAL 0.5 mg/dL (0.2-1); TOT PROT 7.2 g/dl (6.4-8.2)
[2024-02-06 18:33] LABS: PH,URINE 5.5 (5.0-8.0); URINE APPEARANCE CLEAR; URINE BILIRUBIN NEGATIVE (NEGATIVE); URINE COLOR YELLOW; URINE GLUCOSE (UA) NEGATIVE (NEGATIVE); URINE KETONE TRACE (NEGATIVE); URINE LEUK ESTERASE NEGATIVE (NEGATIVE); URINE NITRITE NEGATIVE (NEGATIVE); URINE PROTEIN NEGATIVE (NEGATIVE); URINE UROBILINOGEN 0.2 mg/dL (0.2-1.0)
[2024-02-06] MEDS ORDERED: methylPREDNISolone NA SUCC 40 MG/1 ML VIAL ONE (21:03)
[2024-02-06] MEDS: methylPREDNISolone NA SUCC 40 MG/1 ML VIAL IVPUSH SCH (21:13)
[2024-02-06] MEDS ORDERED: ALBUTEROL SO4 HFA INHALER IH ONE (22:53)
[2024-02-06] MEDS ORDERED: ALBUTEROL SO4 HFA INHALER IH PRN (23:01)
[2024-02-06] MEDS: ALBUTEROL SO4 HFA INHALER IH SCH (23:03)
[2024-02-06] MEDS: REMDESIVIR 200 MG in SODIUM CHLORIDE 250 ML IVPB ONE ×2 (23:03)
[2024-02-06] MEDS ORDERED: FLUTICASONE/UMECLIDIN/VILANTER(200-62.5-25 TRELEGY ELLIPTA) INAHLER IH SCH (23:30)
[2024-02-07] MEDS: DOXYCYCLINE INJECTION 100 MG in DEXTROSE 5%-WATER 100 ML IVPB SCH (01:10)
[2024-02-07] MEDS: LEVOTHYROXINE NA 100 MCG TABLET (FP) PO SCH (06:01)
[2024-02-07 08:57] LABS: BASO % 0.1 % (0-2.0); HEMATOCRIT 36.3 % (32.4-45.2); HEMOGLOBIN 12.8 GM/dL (10.7-15.3); LYMPH % 24.2 % (8-40); MCH 33.2 pg (25.7-33.7); MCHC 35.1 g/dl (32.0-36.0); MEAN CELL VOLUME 94.6 fl (80-96); MEAN PLT VOLUME 10.3 fl (7.5-11.1); MONO % 1.6 % (3.8-10.2); NEUT % 74.1 % (42.8-82.8); PLATELET COUNT 197 10^3/uL (134-434); RBC 3.84 M/mm3 (3.60-5.2); WHITE BLOOD COUNT 2.4 K/mm3 (4.0-10.0)
[2024-02-07 09:04] LABS: POTASSIUM 3.6 mmol/L (3.5-5.1)
[2024-02-07 09:06] LABS: ALBUMIN 3.2 g/dl (3.4-5.0); CALCIUM 8.8 mg/dL (8.5-10.1); MAGNESIUM 1.9 mg/dL (1.8-2.4)
[2024-02-07 09:08] LABS: CREATININE 0.7 mg/dL (0.55-1.3)
[2024-02-07 09:09] LABS: PHOSPHOROUS 2.9 mg/dL (2.5-4.9)
[2024-02-07 09:11] LABS: BILIRUBIN,TOTAL 0.4 mg/dL (0.2-1); TOT PROT 7.2 g/dl (6.4-8.2)
[2024-02-07] MEDS: CEFTRIAXONE 1 G/50 ML PREMIX 50 ML IVPB SCH (09:32)
[2024-02-07] MEDS: VALSARTAN 160 MG TABLET PO SCH (09:32)
[2024-02-07] MEDS: amLODIPine BESYLATE 10 MG TABLET (FP) PO SCH (09:32)
[2024-02-07] MEDS: metoPROLOL SUCCINATE 25 MG TAB.SR.24H (FP) PO SCH (09:32)
[2024-02-07] MEDS: ENOXAPARIN NA (PORCINE) 40 MG/0.4 ML DISP.SYRIN SQ SCH (09:33)
[2024-02-07] MEDS ORDERED: DOXYCYCLINE HYCLATE 100 MG CAPSULE PO SCH (10:00)
[2024-02-07] MEDS ORDERED: FLUTICASONE/UMECLIDIN/VILANTER(100-62.5-25 TRELEGY ELLIPTA) INAHLER IH SCH (10:00)
[2024-02-07 14:24] VITALS: RESP 18
[2024-02-07] MEDS: traZODone HCL 50 MG TABLET (FP) PO SCH (21:19)
[2024-02-07] MEDS: REMDESIVIR 100 MG in SODIUM CHLORIDE 250 ML IVPB SCH (22:51)
[2024-02-08 08:30] LABS: HEMATOCRIT 37.9 % (32.4-45.2); HEMOGLOBIN 12.7 GM/dL (10.7-15.3); LYMPH % 8.8 % (8-40); MCH 31.9 pg (25.7-33.7); MCHC 33.5 g/dl (32.0-36.0); MEAN PLT VOLUME 10.6 fl (7.5-11.1); MONO % 1.9 % (3.8-10.2); NEUT % 89.3 % (42.8-82.8); PLATELET COUNT 207 10^3/uL (134-434); RBC 3.99 M/mm3 (3.60-5.2); RDW 13.3 % (11.6-15.6); WHITE BLOOD COUNT 12.3 K/mm3 (4.0-10.0)
[2024-02-08 09:31] LABS: POTASSIUM 3.6 mmol/L (3.5-5.1)
[2024-02-08 09:38] LABS: CREATININE 0.7 mg/dL (0.55-1.3)
[2024-02-08 09:39] LABS: PHOSPHOROUS 3.1 mg/dL (2.5-4.9)
[2024-02-08 09:40] LABS: BILIRUBIN,TOTAL 0.3 mg/dL (0.2-1); TOT PROT 6.9 g/dl (6.4-8.2)
[2024-02-08 09:44] LABS: ALBUMIN 3.2 g/dl (3.4-5.0); BLOOD UREA NITROGEN 17.8 mg/dL (7-18)
[2024-02-08 10:01] LABS: CALCIUM 9.1 mg/dL (8.5-10.1)
[2024-02-08 10:02] LABS: MAGNESIUM 2.1 mg/dL (1.8-2.4)
[2024-02-08] MEDS: DOXYCYCLINE HYCLATE 100 MG CAPSULE PO SCH (18:07)
[2024-02-08] MEDS: methylPREDNISolone NA SUCC 40 MG/1 ML VIAL IVPUSH SCH (21:20)
[2024-02-08] MEDS: ROSUVASTATIN CA 5 MG TABLET PO SCH (21:20)
[2024-02-09 08:23] LABS: HEMATOCRIT 39.1 % (32.4-45.2); HEMOGLOBIN 12.5 GM/dL (10.7-15.3); MCHC 31.9 g/dl (32.0-36.0); MEAN PLT VOLUME 10.4 fl (7.5-11.1); PLATELET COUNT 218 10^3/uL (134-434); RBC 4.03 M/mm3 (3.60-5.2); WHITE BLOOD COUNT 12.6 K/mm3 (4.0-10.0)
[2024-02-09 08:36] LABS: POTASSIUM 3.6 mmol/L (3.5-5.1)
[2024-02-09 08:45] LABS: ALBUMIN 2.9 g/dl (3.4-5.0); BLOOD UREA NITROGEN 24.4 mg/dL (7-18); CALCIUM 8.9 mg/dL (8.5-10.1); MAGNESIUM 2.1 mg/dL (1.8-2.4)
[2024-02-09 08:48] LABS: CREATININE 0.8 mg/dL (0.55-1.3); PHOSPHOROUS 3.3 mg/dL (2.5-4.9)
[2024-02-09 08:50] LABS: BILIRUBIN,TOTAL 0.3 mg/dL (0.2-1); TOT PROT 6.3 g/dl (6.4-8.2)
[2024-02-09] MEDS: CEFTRIAXONE 1 G/50 ML PREMIX 50 ML IVPB SCH (09:44)
[2024-02-09] MEDS: POLYETHYLENE GLYCOL (HEALTHYLAX) 3350 17 GM PACKET PO SCH (13:31)
[2024-02-09] MEDS: SENNOSIDES 8.6MG TABLET (FP) PO PRN (13:31)
[2024-02-10 09:23] LABS: POTASSIUM 3.7 mmol/L (3.5-5.1)
[2024-02-10 09:25] LABS: ALBUMIN 2.9 g/dl (3.4-5.0); BLOOD UREA NITROGEN 23.7 mg/dL (7-18); CALCIUM 8.9 mg/dL (8.5-10.1); MAGNESIUM 2.1 mg/dL (1.8-2.4)
[2024-02-10 09:29] LABS: BASO % 0.1 % (0-2.0); HEMATOCRIT 40.7 % (32.4-45.2); HEMOGLOBIN 13.3 GM/dL (10.7-15.3); LYMPH % 13.6 % (8-40); MCH 31.6 pg (25.7-33.7); MCHC 32.7 g/dl (32.0-36.0); MEAN CELL VOLUME 96.6 fl (80-96); MEAN PLT VOLUME 10.2 fl (7.5-11.1); MONO % 5.7 % (3.8-10.2); NEUT % 80.6 % (42.8-82.8); PLATELET COUNT 219 10^3/uL (134-434); RBC 4.22 M/mm3 (3.60-5.2); RDW 13.2 % (11.6-15.6)
[2024-02-10 09:30] LABS: BILIRUBIN,TOTAL 0.3 mg/dL (0.2-1); CREATININE 0.7 mg/dL (0.55-1.3); TOT PROT 6.3 g/dl (6.4-8.2)
[2024-02-11 06:31] VITALS: BP 147/82; PULSE 63; TEMP 97.7
[2024-02-11 09:04] LABS: BASO % 0.1 % (0-2.0); EOS % 0.2 % (0-4.5); HEMATOCRIT 39.9 % (32.4-45.2); HEMOGLOBIN 13.1 GM/dL (10.7-15.3); LYMPH % 35.8 % (8-40); MCH 31.5 pg (25.7-33.7); MCHC 32.7 g/dl (32.0-36.0); MEAN CELL VOLUME 96.3 fl (80-96); MEAN PLT VOLUME 10.5 fl (7.5-11.1); MONO % 13.2 % (3.8-10.2); NEUT % 50.7 % (42.8-82.8); PLATELET COUNT 204 10^3/uL (134-434); RBC 4.15 M/mm3 (3.60-5.2); RDW 13.1 % (11.6-15.6); WHITE BLOOD COUNT 7.9 K/mm3 (4.0-10.0)
[2024-02-11 09:24] LABS: POTASSIUM 3.6 mmol/L (3.5-5.1)
[2024-02-11 09:28] LABS: ALBUMIN 2.6 g/dl (3.4-5.0); BLOOD UREA NITROGEN 18.7 mg/dL (7-18); CALCIUM 8.5 mg/dL (8.5-10.1); MAGNESIUM 2.1 mg/dL (1.8-2.4)
[2024-02-11 09:31] LABS: CREATININE 0.6 mg/dL (0.55-1.3)
[2024-02-11 09:33] LABS: BILIRUBIN,TOTAL 0.4 mg/dL (0.2-1); TOT PROT 5.9 g/dl (6.4-8.2)
[2024-02-11] MEDS: predniSONE 20 MG TABLET (UD) PO SCH (10:09)
== END 2024-02-11 11:26 | disposition home or self-care (01) | DRG 177 ==
LOC: JER 16:16 → JERBED 20:06 → J7W 02-07 00:03
PROVIDERS: ADMIT Internal Medicine
PROC: XW033E5 Introduction of Remdesivir Anti-infective into Peripheral Vein, Percutaneous Approach, New Technology Group 5 (ICD-10-PCS; principal; 2024-02-06)
DX: U07.1 COVID-19 (principal); J12.82 Pneumonia due to coronavirus disease 2019; J44.1 Chronic obstructive pulmonary disease with (acute) exacerbation; I10 Essential (primary) hypertension; E78.5 Hyperlipidemia, unspecified; E03.9 Hypothyroidism, unspecified; G47.00 Insomnia, unspecified; H10.89 Other conjunctivitis; R09.02 Hypoxemia; Z98.84 Bariatric surgery status
CPT/HCPCS: 0241U-QW; 36415; 71045-TC-FY; 80053; 81003; 83735; 84100; 85025; 85027; 86140; 87070; 87086; 87205; 87899; 93005; 93010; 94761; 99285-25; J0248

== ENCOUNTER 2024-11-20 20:00 | Emergency (ER) | payer OTHER ==
[2024-11-20 20:08] VITALS: BP 151/62; PULSE 62; RESP 18; TEMP 97.9; BMI 30.9
== END 2024-11-20 21:04 | disposition home or self-care (01) ==
LOC: JERFT 20:00
DX: S80.812A Abrasion, left lower leg, initial encounter (principal); X58.XXXA Exposure to other specified factors, initial encounter
CPT/HCPCS: 99283-25